=== PATIENT | female | born 1985 | race American Indian/Alaskan Native ===

== ENCOUNTER 2021-08-22 13:22 | Emergency (ER) | payer OTHER ==
[2021-08-22 13:38] VITALS: BP 149/98
[2021-08-22] MEDS ORDERED: SODIUM CHLORIDE 0.9% 1000 ML 1,000 ML IV ONE (13:43)
--- NOTE | 2021-08-22 13:44 | Event Note ---
ED Screening Note Date of service: 08/22/21 Time: 13:43 ED Screening Note: This is a 36-year-old female with past medical history of hypertension presents the emergency department approximately 15 weeks G1, P0 with chief complaint of nausea, vomiting, lower abdominal cramping and vaginal spotting that started over the past few days. 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 Further treatment and workup at subsequent clinical providers discretion. Patient/guardian urged not to elope from the ED as their condition may be serious if not clinically assessed and managed. Initial orders include: CBC, BMP, ABO Rh, OB ultrasound, urinalysis, IV fluids
--- NOTE | 2021-08-22 14:52 | Ultrasound Report ---
ULTRASOUND OBSTETRIC INDICATION / CLINICAL INFORMATION: Vaginal bleeding. Clinical Gestational Age (GA) in weeks, days: 15, 1 TECHNIQUE: Transabdominal. COMPARISON: None available. FINDINGS: Single intrauterine . Biparietal Diameter = 3.0 cm = 15, 4 weeks, days Head Circumference = 11.7 cm = 15, 5 weeks, days Abdominal Circumference = 9.7 cm = 15, 6 weeks, days Femur Length = 1.9 cm = 15, 5 weeks, days Average Ultrasound Age (AUA) = 15, 5 weeks, days Heart Rate: 160 beats per minute. Estimated Weight in grams (if calculated): Not calculated Estimated Weight Growth Percentile (if calculated): Not calculated Position: variable Cervix: closed. Length in cm (if measured): Not measured Placenta: posterior and low lying. Amniotic Fluid Volume: normal Amniotic Fluid Index (MARTIN) in cm (if calculated): Not calculated. Maternal Adnexa: No significant abnormality. Multiple uterine fibroids, measuring up to 5.6 cm. IMPRESSION: 1. Single, living intrauterine with estimated sonographic age of 15, 5 weeks, days. 2. Multiple uterine fibroids, measuring up to 5.6 cm. 3. Posterior low-lying placenta. Signer Name: Gucci Mendenhall DO Signed: 08/22/2021 2:45 PM Workstation Name: [email or web address]
[2021-08-22 15:13] LABS: Hematocrit 34.4 % (30.3-42.9); Hemoglobin 11.4 gm/dl (10.1-14.3); Mean Corpuscular HGB Conc 33 % (30-34); Mean Corpuscular Volume 83 fl (79-97); Platelet Count 306 K/mm3 (140-440); Red Blood Count 4.15 M/mm3 (3.65-5.03); Red Cell Distribution Width 16.9 % (13.2-15.2)
[2021-08-22 15:27] LABS: Basophils # (Auto) 0.3 K/mm3 (0.0-0.1); Eosinophils % (Auto) 0.5 % (0.0-4.3); Monocytes # (Auto) 0.5 K/mm3 (0.0-0.8); Monocytes % (Auto) 5.6 % (0.0-7.3)
[2021-08-22 15:30] LABS: Blood Urea Nitrogen 5 mg/dL (7-17); Calcium 9.2 mg/dL (8.4-10.2); Hemolysis Index 2
[2021-08-22 15:32] LABS: BUN/Creatinine Ratio 8
[2021-08-22 17:29] LABS: Bilirubin,Urine NEG (Negative); Blood,Urine NEG (Negative); Color,Urine Yellow (Yellow); Mucus,Urine FEW /HPF; Protein,Urine <15 mg/dL mg/dL (Negative); RBC,Urine < 1.0 /HPF (0.0-6.0); Urobilinogen,Urine < 2.0 mg/dL (<2.0)
--- NOTE | 2021-08-22 17:34 | Emergency Department Report ---
ED HPI - General Chief complaint: Vaginal Bleeding Stated complaint: 15 WEEKS SPOTTING Time Seen by Provider: 08/22/21 14:13 Source: patient Mode of arrival: Ambulatory Limitations: No Limitations - History of Present Illness Initial comments: 36 yof who is about 15 weeks gestation presents to ed for evaluation of vaginal spotting that started this am. She states that she noticed blood only when she wiped and denies having any abdominal pain or cramping. She has a pmh of HTN and is following with [facility] for this . She denies fever, dysuria, vaginal discharge. MD Complaint: vaginal bleeding -: Sudden, hour(s) Severity scale (0 -10): 0 Improves with: none Worsens with: none Associated symptoms: vaginal bleeding. denies: nausea/vomiting, vaginal discha rge, abdominal pain, dysuria, headache, vision changes, malaise, dysparuenia, rash, seizure, shortness of breath, syncope, weakness Vaginal bleeding: light :: Yes Number of weeks : 15 OB History - Current : no complications Pre-harper care: followed by OB - Related Data : 1 Para: 0 Ab: 0 Allergies Allergy/AdvReac Type Severity Reaction Status Date / Time No Known Allergies Allergy Unverified 08/22/21 13:38 ED Review of Systems ROS: Stated complaint: 15 WEEKS SPOTTING Other details as noted in HPI Comment: All other systems reviewed and negative Constitutional: denies: chills, diaphoresis, fever, malaise, weakness Eyes: denies: eye pain, eye discharge ENT: denies: ear pain, throat pain, dental pain, hearing loss, congestion Respiratory: denies: cough, orthopnea, shortness of breath, SOB with exertion, SOB at rest Cardiovascular: denies: chest pain, palpitations, dyspnea on exertion, orthopnea, edema, syncope, paroxysmal nocturnal dyspnea Endocrine: no symptoms reported Gastrointestinal: denies: abdominal pain, nausea, diarrhea, hematemesis, melena, hematochezia Genitourinary: denies: as per HPI, urgency, dysuria, frequency, hematuria, di scharge Musculoskeletal: denies: back pain Skin: denies: rash, lesions Neurological: denies: headache, weakness, numbness, paresthesias, confusion, abnormal gait, vertigo Psychiatric: denies: anxiety, depression Hematological/Lymphatic: denies: easy bleeding, easy bruising ED Physical Exam - General Limitations: No Limitations General appearance: alert, in no apparent distress - Head Head exam: Present: atraumatic, normocephalic - Eye Eye exam: Present: normal appearance. Absent: conjunctival injection - Neck Neck exam: Present: normal inspection, full ROM. Absent: tenderness, lymphadenopathy - Respiratory Respiratory exam: Present: normal lung sounds bilaterally. Absent: respiratory distress, wheezes, rales, rhonchi, stridor, chest wall tenderness, accessory muscle use - Cardiovascular Cardiovascular Exam: Present: tachycardia, normal heart sounds - GI/Abdominal GI/Abdominal exam: Present: soft, normal bowel sounds. Absent: tenderness, guarding, rebound, rigid - Extremities Exam Extremities exam: Present: normal inspection - Back Exam Back exam: Present: normal inspection. Absent: tenderness, CVA tenderness (R), CVA tenderness (L), paraspinal tenderness, vertebral tenderness - Neurological Exam Neurological exam: Present: alert, oriented X3 - Psychiatric Psychiatric exam: Present: normal affect, normal mood - Skin Skin exam: Present: warm, dry, intact, normal color ED Course Vital Signs 08/22/21 13:36 Temperature 97.9 F Pulse Rate 103 H Respiratory 16 Rate Blood Pressure 149/98 [Right] O2 Sat by Pulse 100 Oximetry ED Medical Decision Making - Lab Data Result diagrams: 08/22/21 14:50 08/22/21 14:50 - Radiology Data Radiology results: report reviewed US: Impression: 1. Single, living intrauterine with estimated sonographic age of 15, 5 weeks, days 2. Multiple uterine fibroids, measureing up to 5.6 cm. 3. Posterior low lying placenta - Medical Decision Making 36 yof who is about 15 weeks gestation presents to ed for evaluation of vaginal spotting that started this am. She states that she noticed blood only when she wiped and denies having any abdominal pain or cramping. She has a pmh of HTN and is following with [facility] for this . She denies fever, dysuria, vaginal discharge. No gross abnomalities noted on labs, and UA negative for UTI. Patient noted to be o positive, so no consideration needed for Rhogam. US noted to have single IUP at 15 weeks 5 days without an acute processes noted. She was noted to have a posterior, low-lying placenta for which she was advised to follow up with her pillar worker for monitoring and management since position of placenta can improve with increasing gestational age. Patient continues to deny abdominal pain and cramping and denies any bleeding at this time. She was advised to follow up with pillar worker as previously planned. She was advised to return to ED immediately if bleeding worsens suddenly and significantly. She verbalized understanding of and agreement with plan of care. Critical care attestation.: If time is entered above; I have spent that time in minutes in the direct care of this critically ill patient, excluding procedure time. ED Disposition Clinical Impression: Vaginal bleeding in patient at less than 20 weeks gestation Disposition: 01 HOME / SELF CARE / HOMELESS Is pt being admited?: No Does the pt Need Aspirin: No Condition: Stable Instructions: Vaginal Bleeding During , Second Trimester, [id number] Additional Instructions: Follow-up with ACCESS CONTROL OFFICER Referrals: PRIMARY CAREMD [Primary Care Provider] - 3-5 Days Time of Disposition: 17:34
[2021-08-22 18:17] LABS: Basophils % (Manual) 0 % (0.0-1.8); Eosinophils % (Manual) 0 % (0.0-4.3); RBC Morphology Normal; Total Cells Counted 100
== END 2021-08-22 19:00 | disposition home or self-care (01) ==
LOC: ED 13:22
DX: O46.92 Antepartum hemorrhage, unspecified, second trimester (principal); Z3A.15 15 weeks gestation of pregnancy
CPT/HCPCS: 36415; 76805; 80048; 81001; 84702; 85007; 85025; 86900; 86901; 96360; 99284; J7030; 76801; Q0162

== ENCOUNTER 2022-01-30 20:43 | Inpatient (IN) | payer OTHER ==
[2022-01-30] MEDS ORDERED: OXYTOCIN 10 UNIT/1 ML INJ IM PRN (20:49)
[2022-01-30] MEDS ORDERED: TERBUTALINE 1 MG/1 ML INJ SUB-Q PRN (20:49)
[2022-01-30] MEDS ORDERED: ACETAMINOPHEN 325 MG TAB PO PRN (20:49)
[2022-01-30] MEDS ORDERED: MINERAL OIL 30 ML ORAL LIQD PO PRN (20:49)
[2022-01-30] MEDS ORDERED: NALOXONE 0.4 MG/1 ML INJ IV PRN (20:49)
[2022-01-30] MEDS ORDERED: ONDANSETRON 4 MG/2 ML INJ IV PRN (20:49)
[2022-01-30] MEDS ORDERED: CARBOPROST TROMETHAMINE 250 MCG/1 ML INJ IM PRN (20:49)
[2022-01-30] MEDS ORDERED: miSOPROStol 200 MCG TAB PR PRN (20:49)
[2022-01-30] MEDS ORDERED: LOPERAMIDE 2 MG CAP PO PRN (20:49)
[2022-01-30] MEDS ORDERED: BUTORPHANOL 2 MG/1 ML INJ IV PRN (20:49)
[2022-01-30] MEDS ORDERED: DINOPROSTONE 10 MG VAG SUPP VG ONE (20:49)
[2022-01-30] MEDS ORDERED: LIDOCAINE (2%) 20 MG/1 ML VIAL 20 ML MDV INFILTRATI ONE (20:49)
[2022-01-30] MEDS ORDERED: METHYLERGONOVINE MALEATE 0.2 MG/ML VIAL IM PRN (20:49)
[2022-01-30] MEDS ORDERED: AMPICILLIN/NS 2 GM/100 ML 2 GM/100 ML BAG IV ONE (20:49)
[2022-01-30] MEDS ORDERED: OXYTOCIN DRIP 30 UNITS/500 ML BAG IV SCH ×2 (21:00)
[2022-01-30 22:08] LABS: Hematocrit 37.2 % (30.3-42.9); Hemoglobin 12.1 gm/dl (10.1-14.3); Mean Corpuscular HGB Conc 33 % (30-34); Mean Corpuscular Volume 83 fl (79-97); Platelet Count 305 K/mm3 (140-440); Red Blood Count 4.46 M/mm3 (3.65-5.03); Red Cell Distribution Width 15.8 % (13.2-15.2)
[2022-01-30 22:27] LABS: Alanine Aminotransferase 16 units/L (7-56)
[2022-01-30 23:40] LABS: Color,Urine Yellow (Yellow)
[2022-01-30 23:44] LABS: Mucus,Urine FEW /HPF
[2022-01-31] MEDS: LACTATED RINGERS 1,000 ML IV SCH ×5 (00:54→23:25)
[2022-01-31] MEDS: AMPICILLIN/NS 1 GM/50 ML 1 GM/50 ML BAG IV SCH ×2 (06:15→21:15)
[2022-01-31] MEDS: fentaNYL 100 MCG/2 ML INJ IV PRN ×2 (09:47→18:53)
[2022-01-31] MEDS: valACYclovir 500 MG TAB PO SCH ×2 (09:47→21:16)
--- NOTE | 2022-01-31 13:29 | History and Physical Report ---
History of Present Illness Date of examination: 01/31/22 Date of admission: 01/30/22 20:43 Chief complaint: Induction of labor History of present illness: 36-year-old G1, P0 at 38+2 weeks who presents for induction of labor secondary to chronic hypertension, advanced maternal age, morbid obesity. The patient initiated care 14 weeks estimated gestational age. As noted previously the patient's course is complicated by chronic hypertension. She is GBS p ositive. Past History Past Medical History: hypertension, other (Morbid obesity) Past Surgical History: no surgical history Social history: single - Obstetrical History Expected Date of Delivery: 02/12/22 Actual Gestation: 38 Week(s) 2 Day(s) : 1 Para: 0 Hx # Term Pregnancies: 0 Number of Pregnancies: 0 Spontaneous Abortions: 0 Induced : 0 Number of Living Children: 0 Medications and Allergies Allergies Allergy/AdvReac Type Severity Reaction Status Date / Time naproxen [From Naprosyn] Allergy Mild Hives Verified 01/10/22 08:37 tramadol Allergy Mild Hives Verified 01/10/22 08:37 Home Medications Medication Instructions Recorded Confirmed Last Taken Type Labetalol 200mg TAB 200 mg PO BID 01/23/22 01/31/22 01/22/22 20:00 History Active Meds: Active Medications Acetaminophen (Acetaminophen 325 Mg Tab) 650 mg PO Q4H PRN PRN Reason: Pain, Mild (1-3) Butorphanol Tartrate (Butorphanol 2 Mg/1 Ml Inj) 1 mg IV Q2H PRN PRN Reason: Pain, Moderate(4-6) LABOR PAIN Carboprost Tromethamine (Carboprost Tromethamine 250 Mcg/1 Ml Inj) 250 mcg IM ONCE PRN PRN Reason: Uterine Bleeding Ephedrine Sulfate (Ephedrine Sulfate 50 Mg/1 Ml Inj) 10 mg IV Q2M PRN PRN Reason: Hypotension Fentanyl (Fentanyl 100 Mcg/2 Ml Inj) 100 mcg IV Q2H PRN PRN Reason: Pain,Severe (7-10) LABOR PAIN Last Admin: 01/31/22 09:47 Dose: 100 mcg Oxytocin/Sodium Chloride (Pitocin/Ns 30 Unit/500ml) 30 units in 500 mls @ 2 mls/hr IV TITR JANICE; Protocol Last Admin: 01/31/22 13:11 Dose: 4 mls/hr, 4 mls/hr Lactated Ringer's (Lactated Ringers) 1,000 mls @ 125 mls/hr IV DIRECT [facility] Last Admin: 01/31/22 13:09 Dose: 125 mls/hr Oxytocin/Sodium Chloride (Pitocin/Ns 30 Unit/500ml) 30 units in 500 mls @ 40 mls/hr IV TITR [facility]; Protocol Ampicillin Sodium (Ampicillin/Ns 1 Gm/50 Ml) 1 gm in 50 mls @ 100 mls/hr IV Q4H [facility]; Protocol Last Admin: 01/31/22 06:15 Dose: 100 mls/hr Labetalol HCl (Labetalol 200 Mg Tab) 200 mg PO BID [facility] Last Admin: 01/31/22 09:46 Dose: 200 mg Loperamide HCl (Loperamide 2 Mg Cap) 2 mg PO ONCE PRN PRN Reason: give with Hemabate Methylergonovine Maleate (Methylergonovine Maleate 0.2 Mg/Ml Vial) 0.2 mg IM ONCE PRN PRN Reason: Uterine Bleeding Mineral Oil (Mineral Oil 30 Ml Oral Liqd) 30 ml PO QHS PRN PRN Reason: Constipation Misoprostol (Misoprostol 200 Mcg Tab) 800 mcg KS ONCE PRN PRN Reason: Uterine Bleeding Naloxone HCl (Naloxone 0.4 Mg/1 Ml Inj) 0.1 mg IV Q2MIN PRN PRN Reason: Res Rate </= 8 or 02 SAT < 92% Ondansetron HCl (Ondansetron 4 Mg/2 Ml Inj) 4 mg IV Q8H PRN PRN Reason: Nausea And Vomiting Oxytocin (Oxytocin 10 Unit/1 Ml Inj) 10 unit IM ONCE PRN PRN Reason: Uterine Bleeding Terbutaline Sulfate (Terbutaline 1 Mg/1 Ml Inj) 0.25 mg SUB-Q ONCE PRN PRN Reason: Hyperstimulation/Hypertonicity Valacyclovir HCl (Valacyclovir 500 Mg Tab) 1,000 mg PO QDAY [facility] Last Admin: 01/31/22 09:47 Dose: 1,000 mg Review of Systems All systems: negative - Vital Signs Vital signs: Vital Signs Pulse Ox 98 01/30/22 22:12 Temp Pulse Resp BP Pulse Ox 99.0 F 83 18 97/53 100 01/31/22 06:50 01/31/22 13:26 01/30/22 22:17 01/31/22 13:14 01/31/22 13:26 - Physical Exam Breasts: Positive: deferred Cardiovascular: Regular rate Lungs: Positive: Clear to auscultation Results Result Diagrams: 01/30/22 21:54 01/30/22 21:54 Abnormal lab results 01/30/22 Range/Units 21:54 MCH 27 L (28-32) pg RDW 15.8 H (13.2-15.2) % All other labs normal. Assessment and Plan - Patient Problems (1) Chronic hypertension affecting Current Visit: Yes Status: Acute Plan to address problem: induction for chronic hypertension (2) Morbid obesity Current Visit: Yes Status: Acute
[2022-01-31] MEDS ORDERED: ePHEDrine SULFATE 50 MG/1 ML INJ IV PRN (19:38)
[2022-01-31] MEDS ORDERED: NALOXONE 0.4 MG/1 ML INJ IV PRN (19:38)
[2022-01-31] MEDS: ePHEDrine SULFATE 50 MG/1 ML INJ IV PRN ×3 (20:42→22:30)
--- NOTE | 2022-01-31 20:54 | Anesthesia Consultation ---
Anesthesia Consult and Med Hx Date of service: 01/31/22 - Airway Anesthetic Teeth Evaluation: Poor ROM Head & Neck: Adequate Mental/Hyoid Distance: Adequate Mallampati Class: Class III Intubation Access Assessment: Possibly Difficult - Pulmonary Exam CTA: Yes - Cardiac Exam Cardiac Exam: RRR - Pre-Operative Health Status ASA Pre-Surgery Classification: ASA3 Proposed Anesthetic Plan: Epidural - Pre-Anesthesia Comment Pre-Anesthesia Comments: cervical epidural injection x 2 S/P "ladder accident" - Pulmonary Hx Smoking: No Hx Asthma: Yes (no recent attack, no medications) Hx Respiratory Symptoms: No COPD: No Hx Pneumonia: No - Cardiovascular System Hx Hypertension: Yes (CHTN, diagnosed 11/2020) - Central Nervous System Hx Seizures: No Hx Back Pain: Yes Hx Psychiatric Problems: No - Gastrointestinal Hx Gastroesophageal Reflux Disease: Yes - Endocrine Hx Renal Disease: No Hx End Stage Renal Disease: No Hx Liver Disease: No Hx Insulin Dependent Diabetes: No Hx Non-Insulin Dependent Diabetes: No Hx Hypothyroidism: No Hx Hyperthyroidism: No - Hematic Hx Anemia: No Hx Sickle Cell Disease: No - Other Systems Hx Alcohol Use: No Hx Substance Use: No Hx Obesity: Yes
[2022-01-31] MEDS: fentaNYL-BUPIV 2 MCG/ML-0.125% 200 MCG/100 ML BAG EPIDURAL SCH (21:16)
--- NOTE | 2022-01-31 21:21 | Progress Note ---
Labor Epidural - Labor Epidural Start Time: 19:56 Stop Time: 20:19 Performed by:: BEVERLEY TALAMANTES Procedure: Patient is requesting a laboring epidural for laboring pain. Patient IDed, H&P reviewed, all questions and concerns were answered, and consent was signed. Timeout was performed at bedside. Patient in sitting position. Sterile prep and drape was performed. [5] ml of 1% lidocaine skin wheal at L[3]- L [4]. 17- gauge Tuohy epidural needle was advanced to loss of resistance with saline technique 8cm. Single dural perforation via 25 guage spinal needle placed through the shaft of Epidural needle. Positive CSF via spinal needle. Negative CSF negative blood via Epidural needle. Epidural catheter advanced to [12] centimeters. [NEGATIVE] Aspiration [NEGATIVE] test dose. Negative Paresthesia. Sterile dressing applied. Patient tolerated procedure.
[2022-02-01] MEDS: AMPICILLIN/NS 1 GM/50 ML 1 GM/50 ML BAG IV SCH ×2 (03:23→05:04)
[2022-02-01] MEDS: fentaNYL-BUPIV 2 MCG/ML-0.125% 200 MCG/100 ML BAG EPIDURAL SCH (05:08)
[2022-02-01] MEDS ORDERED: LANOLIN/ZINC/DIMETHICONE (LANSINOH) 7 GM TP PRN (10:43)
[2022-02-01] MEDS ORDERED: PROMETHAZINE 25 MG RECT SUPP PR PRN (10:43)
[2022-02-01] MEDS ORDERED: PROMETHAZINE 25 MG TAB PO PRN (10:43)
[2022-02-01] MEDS ORDERED: MAGNESIUM HYDROXIDE (MOM) ORAL LIQD UDC PO PRN (10:43)
[2022-02-01] MEDS ORDERED: WITCH HAZEL/ GLYCERIN PAD TP PRN (10:43)
[2022-02-01] MEDS ORDERED: diphenhydrAMINE 25 MG CAP PO PRN (10:43)
--- NOTE | 2022-02-01 10:56 | Procedure Note ---
OB Delivery Note - Delivery Date of Delivery: 02/01/22 (1023) Surgeon: YOBANI RUCKER (CNM) Estimated blood loss: other (400mls) - Vaginal Delivery presentation: vertex Delivery position: OA Intrapartum events: none Delivery induction: oxytocin Delivery augmentation: rupture of membranes (AROM @ 1815, 01/31/22. clear) Delivery monitor: internal FHT, internal uterine Route of delivery: Delivery placenta: spontaneous (berumen, 1028) Delivery cord: nuchal cord (x 4, reduced at perineum) Episiotomy: none Delivery laceration: none, other (perineal abrasions) Anesthesia: none Delivery comments: Upon entering room, baby was delivered and crying in warmer with NICU team. Cord blood collected, sent to pathology. Placenta spontaneously delivered, disposed. Uterus deep and firm, U-2, hemostasis maintained. Perineum with superficial abrasion, pressure applied until hemostasis maintained. Mother and baby safe, stable and left in care of RN. - A at 1 minute: 8 at 5 minutes: 9 Gender: Male (Weight: 2890gms (6lbs 6ozs) 19 inches)
[2022-02-01] MEDS: IBUPROFEN 800 MG TAB PO SCH (16:55)
[2022-02-02] MEDS: oxyCODONE /ACETAMINOPHEN 5-325MG TAB PO PRN ×4 (00:03→18:16)
[2022-02-02 01:53] LABS: Hematocrit 33.3 % (30.3-42.9); Hemoglobin 10.6 gm/dl (10.1-14.3)
[2022-02-02] MEDS: IBUPROFEN 800 MG TAB PO SCH ×3 (06:04→23:00)
--- NOTE | 2022-02-02 08:35 | Discharge Summary ---
Providers - Providers Date of Admission: 01/30/22 20:43 Date of discharge: 02/03/22 Attending physician: ROQUE LEWIS Primary care physician: ROQUE LEWIS Hospitalization Reason for admission: induction of labor Delivery: Episiotomy: none Laceration: none Other procedures: none complications: none Discharge diagnosis: IUP at term delivered baby: male (Mr. Carpenter!!!) Hospital course: 36-year-old G1, P0 at 38+2 weeks who presents for induction of labor secondary to chronic hypertension, advanced maternal age, morbid obesity. The patient initiated care 14 weeks estimated gestational age. As noted previously the patient's course is complicated by chronic hypertension. She is GBS positive. Delivered viable male . Doing well on PPD#1. Desires to go home tomorrow. Condition at discharge: Good Disposition: 01 HOME / SELF CARE / HOMELESS - Discharge Diagnoses (1) Status post normal vaginal delivery Status: Acute (2) Chronic hypertension affecting Status: Acute (3) Morbid obesity Status: Acute Plan - Discharge Medications Prescriptions: Ibuprofen [Motrin 800 MG tab] 800 mg PO Q8HR #30 tablet - Provider Discharge Summary Activity: routine, no sex for 6 weeks, no heavy lifting 4 weeks, no strenuous exercise Diet: other (Iron rich diet) Instructions: routine Additional instructions: [] Smoking cessation referral if applicable(refer to patient education folder for contact #) [] Refer to [facility] Booklet Call your doctor immediately for: * Fever > 100.5 * Heavy vaginal bleeding ( >1 pad per hour) * Severe persistent headache * Shortness of breath * Reddened, hot, painful area to leg or breast - Follow up plan Follow up: ROQUE LEWIS MD [Primary Care Provider] - 6 Weeks
[2022-02-02] MEDS ORDERED: PRENATAL VIT27-FE FUMARATE-FOLIC ACID VIT TAB PO SCH (10:00)
--- NOTE | 2022-02-02 16:01 | Post Anesthesia Evaluation ---
- Post Anesthesia Evaluation Patient Participated: Yes Airway Patent: Yes Stable Respiratory Function: Yes Nausea/Vomiting: No Temp > 96.8F: Yes Pain Manageable: Yes Adequeate Hydration: Yes Anesthesia Complications: No Block Receding Appropriately: Yes Patient on Ventilator: No
[2022-02-03 09:49] VITALS: BP 121/62
== END 2022-02-03 08:45 | disposition home or self-care (01) | DRG 774 ==
LOC: LD 20:43 → OB 02-01 13:09
PROVIDERS: ADMIT Obstetrics & Gynecology; ATTEND Obstetrics & Gynecology
PROC: 10E0XZZ Delivery of Products of Conception, External Approach (ICD-10-PCS; principal; 2022-02-01)
PROC: 3E0R3BZ Introduction of Anesthetic Agent into Spinal Canal, Percutaneous Approach (ICD-10-PCS; 2022-02-01)
PROC: 00HU33Z Insertion of Infusion Device into Spinal Canal, Percutaneous Approach (ICD-10-PCS; 2022-02-01)
PROC: 3E033VJ Introduction of Other Hormone into Peripheral Vein, Percutaneous Approach (ICD-10-PCS; 2022-02-01)
PROC: 10907ZC Drainage of Amniotic Fluid, Therapeutic from Products of Conception, Via Natural or Artificial Opening (ICD-10-PCS; 2022-02-01)
DX: O10.92 Unspecified pre-existing hypertension complicating childbirth (principal); Z3A.38 38 weeks gestation of pregnancy; Z37.0 Single live birth; Z20.822 Contact with and (suspected) exposure to COVID-19; O99.214 Obesity complicating childbirth; O99.824 Streptococcus B carrier state complicating childbirth; E66.01 Morbid (severe) obesity due to excess calories; O99.62 Diseases of the digestive system complicating childbirth; K21.9 Gastro-esophageal reflux disease without esophagitis; O99.52 Diseases of the respiratory system complicating childbirth; J45.909 Unspecified asthma, uncomplicated; O69.81X0 Labor and delivery complicated by cord around neck, without compression, not applicable or unspecified; O71.89 Other specified obstetric trauma; Z88.5 Allergy status to narcotic agent; Z88.8 Allergy status to other drugs, medicaments and biological substances
CPT/HCPCS: 36415; 59200; 81001; 82565; 83615; 84450; 84460; 84550; 85014; 85018; 85027; 86592; 86850; 86900; 86901; G0378; J3490; J0290; J2590; J3010; J7120; U0003

== ENCOUNTER 2022-02-06 11:16 | Inpatient (IN) | payer OTHER ==
[2022-02-06] MEDS ORDERED: MAGNESIUM SULFATE 4 GM/100 ML BAG IV ONE (11:21)
[2022-02-06] MEDS ORDERED: hydrALAZINE 20 MG/1 ML INJ IV PRN (11:21)
--- NOTE | 2022-02-06 11:23 | History and Physical Report ---
History of Present Illness Date of examination: 02/06/22 Date of admission: 02/06/22 11:16 Chief complaint: "My head hurts and my blood pressure is high" History of present illness: Pt is a 37 year old -[place] female s/p on 02/01/22 after induction of labor for chronic hypertension at 38 wks. She met discharge criteria on PPD #1. The patient reports that over the last few days she has developed headache, and she checked her BP at home with systolic value in the 190s. She presented to the office today for BP check of 184/100. She reports compliance with the prescribed labetalol 200 mg BID throughout this process. She denies RUQ pain or scotomata. 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 History: herpes Family/Genetic History: hypertension Social history: no significant social history - Obstetrical History : 1 Para: 1 Hx # Term Pregnancies: 1 Number of Pregnancies: 0 Spontaneous Abortions: 0 Induced : 0 Number of Living Children: 1 Medications and Allergies Allergies Allergy/AdvReac Type Severity Reaction Status Date / Time naproxen [From Naprosyn] Allergy Mild Hives Verified 01/10/22 08:37 tramadol Allergy Mild Hives Verified 01/10/22 08:37 Home Medications Medication Instructions Recorded Confirmed Last Taken Type Labetalol 200mg TAB 200 mg PO BID 01/23/22 02/06/22 02/06/22 05:00 History Ibuprofen [Motrin 800 MG tab] 800 mg PO Q8HR #30 tablet 02/02/22 02/06/22 Unknown Rx SILVER sulfADIAZINE 50 GRAM 1 applic TP BID #1 tube 02/02/22 02/06/22 Unknown Rx [Thermazene 50 Gram] Active Meds: Active Medications Hydralazine HCl (Hydralazine 20 Mg/1 Ml Inj) 5 mg IV Q30MIN PRN PRN Reason: Hypertension Lactated Ringer's (Lactated Ringers) 1,000 mls @ 125 mls/hr IV DIRECT J[facility] Magnesium Sulfate (Magnesium Sulfate 40gm/1000ml) 40 gm in 1,000 mls @ 50 mls/hr IV DIRECT J[facility] Magnesium Sulfate (Magnesium Sulfate 4gm/100ml) 4 gm in 100 mls @ 300 mls/hr IV ONCE ONE Stop: 02/06/22 11:40 Review of Systems All systems: negative - Physical Exam Breasts: Positive: deferred Cardiovascular: Regular rate Lungs: Positive: Clear to auscultation (obese) Abdomen: Positive: soft. Negative: tenderness Extremities: Positive: edema (1+) Results All other labs normal. Assessment and Plan A: s/p on 02/01/22 Chronic HTN with superimposed preeclampsia Morbid Obesity P: Admit to labor and delivery for IV Magnesium sulfate for seizure prophylaxis PIH panel Hydralazine PRN Discontinue labetalol, begin Procardia XL 30 mg and increase as indicated
[2022-02-06] MEDS: LACTATED RINGERS 1,000 ML IV SCH (13:05)
[2022-02-06] MEDS: NIFEdipine XL 30 MG TAB PO SCH (13:23)
[2022-02-06] MEDS: MAGNESIUM SULFATE 40GM/1000ML 40 GM/1,000 ML BAG IV SCH (13:35)
[2022-02-06 20:26] LABS: Hemoglobin 11.4 gm/dl (10.1-14.3); Mean Corpuscular HGB Conc 33 % (30-34); Mean Corpuscular Volume 84 fl (79-97); Platelet Count 328 K/mm3 (140-440); Red Blood Count 4.15 M/mm3 (3.65-5.03); Red Cell Distribution Width 16.1 % (13.2-15.2)
[2022-02-06 21:09] LABS: Alanine Aminotransferase 25 units/L (7-56); Uric Acid 5.9 mg/dL (3.5-7.6)
[2022-02-06] MEDS ORDERED: ZOLPIDEM 5 MG TAB PO PRN (22:02)
[2022-02-06] MEDS: ACETAMINOPHEN 325 MG TAB PO PRN (22:54)
[2022-02-07] MEDS: LACTATED RINGERS 1,000 ML IV SCH (01:03)
[2022-02-07] MEDS: ACETAMINOPHEN 325 MG TAB PO PRN ×2 (04:03→11:49)
--- NOTE | 2022-02-07 08:30 | Progress Note ---
Assessment and Plan A: s/p on 02/01/22 Chronic HTN with superimposed preeclampsia on magnesium sulfate for seizure prophylaxis Morbid Obesity P: Continue 24 hours of magnesium sulfate If BPs acceptable, consider discharge this evening. Subjective - Subjective Date of service: 02/07/22 Principal diagnosis: Chronic HTN with superimposed preeclampsia Interval history: Pt's headache is improving. No new complaints. Patient reports: no voiding normally (fuentes in place ) Objective - Vital Signs Latest vital signs: Vital Signs Temp Pulse Resp BP Pulse Ox Pulse Ox 02/07/22 08:00 92 H 126/79 02/07/22 07:00 96 H 142/91 02/07/22 06:00 86 136/88 02/07/22 05:00 88 126/69 02/07/22 04:00 88 128/80 02/07/22 03:55 97.2 F L 02/07/22 03:00 84 137/84 02/07/22 02:00 87 120/74 02/07/22 01:00 91 H 124/74 02/07/22 00:58 98.0 F 02/07/22 00:00 86 117/72 02/06/22 23:00 82 121/77 02/06/22 22:14 71 94 02/06/22 22:10 100 02/06/22 22:03 98 H 99 02/06/22 22:00 99 H 126/85 02/06/22 21:37 85 02/06/22 21:33 90 95 02/06/22 21:28 93 H 97 02/06/22 21:23 94 H 96 02/06/22 21:18 94 H 97 02/06/22 21:13 112 H 98 02/06/22 21:10 76 91 02/06/22 21:08 93 H 96 02/06/22 21:02 95 H 89 02/06/22 21:00 93 H 111/66 02/06/22 20:57 96 H 97 02/06/22 20:52 99 H 96 02/06/22 20:45 86 02/06/22 20:41 98.1 F 96 02/06/22 20:38 93 H 98 02/06/22 20:25 80 96 02/06/22 20:16 82 96 02/06/22 20:11 85 92 02/06/22 20:06 84 97 02/06/22 20:05 79 L 02/06/22 20:00 89 132/81 02/06/22 19:59 92 H 96 02/06/22 19:54 92 H 97 02/06/22 19:49 77 98 02/06/22 19:44 82 99 02/06/22 19:39 88 98 02/06/22 19:34 87 99 02/06/22 19:29 96 H 141/91 99 02/06/22 19:24 85 98 02/06/22 19:19 87 98 02/06/22 19:14 78 99 02/06/22 19:09 88 99 02/06/22 19:04 80 100 02/06/22 19:00 84 173/96 02/06/22 18:59 84 99 02/06/22 18:54 73 98 02/06/22 18:49 87 99 02/06/22 18:44 90 98 02/06/22 18:39 78 99 02/06/22 18:34 84 99 02/06/22 18:29 84 99 02/06/22 18:24 85 99 02/06/22 18:19 79 99 02/06/22 18:14 86 98 02/06/22 18:12 16 98 02/06/22 18:09 84 99 02/06/22 18:04 81 99 02/06/22 18:00 74 142/80 02/06/22 17:59 80 99 02/06/22 17:54 80 99 02/06/22 17:49 83 99 02/06/22 17:44 72 100 02/06/22 17:39 72 100 02/06/22 17:34 76 99 02/06/22 17:29 83 99 02/06/22 17:24 83 100 02/06/22 17:19 75 100 02/06/22 17:14 74 100 02/06/22 17:12 16 100 02/06/22 17:09 86 99 02/06/22 17:05 99.0 F 02/06/22 17:04 84 100 02/06/22 16:59 81 100 02/06/22 16:54 97 H 98 02/06/22 16:51 77 86 02/06/22 16:49 78 99 02/06/22 16:48 71 141/82 02/06/22 16:44 72 99 02/06/22 16:39 63 100 02/06/22 16:34 67 99 02/06/22 16:33 68 139/79 02/06/22 16:29 70 99 02/06/22 16:24 64 99 02/06/22 16:19 90 98 02/06/22 16:18 71 136/72 02/06/22 16:14 71 98 02/06/22 16:09 67 96 02/06/22 16:04 66 96 02/06/22 16:03 69 136/69 02/06/22 16:00 16 96 02/06/22 15:59 65 96 02/06/22 15:54 69 97 02/06/22 15:49 62 98 02/06/22 15:48 70 147/84 02/06/22 15:44 69 99 02/06/22 15:39 67 98 02/06/22 15:34 69 98 02/06/22 15:33 71 145/73 02/06/22 15:29 69 99 02/06/22 15:24 71 98 02/06/22 15:19 70 100 02/06/22 15:18 74 147/81 02/06/22 15:14 74 99 02/06/22 15:09 70 99 02/06/22 15:04 93 H 99 02/06/22 15:03 73 154/81 02/06/22 15:00 16 99 02/06/22 14:59 74 99 02/06/22 14:54 67 99 02/06/22 14:49 66 99 02/06/22 14:48 70 155/82 02/06/22 14:44 72 99 02/06/22 14:39 68 98 02/06/22 14:34 96 H 98 02/06/22 14:33 68 154/87 02/06/22 14:29 63 88 02/06/22 14:24 61 99 02/06/22 14:19 66 99 02/06/22 14:18 71 131/65 02/06/22 14:14 81 100 02/06/22 14:09 62 99 02/06/22 14:04 75 99 02/06/22 14:03 62 162/84 02/06/22 14:00 16 99 02/06/22 13:59 62 99 02/06/22 13:54 61 99 02/06/22 13:49 72 100 02/06/22 13:48 64 146/72 02/06/22 13:44 69 99 02/06/22 13:39 69 99 02/06/22 13:34 73 84 02/06/22 13:30 65 135/70 02/06/22 13:29 71 100 02/06/22 13:25 75 136/72 02/06/22 13:24 75 100 02/06/22 13:20 68 140/70 02/06/22 13:19 67 100 02/06/22 13:15 60 146/70 02/06/22 13:14 62 99 02/06/22 13:10 64 159/84 02/06/22 13:09 63 100 02/06/22 13:08 16 100 02/06/22 13:05 67 162/86 02/06/22 13:04 63 100 02/06/22 12:59 70 100 02/06/22 12:54 75 99 02/06/22 12:49 69 100 02/06/22 12:44 77 100 02/06/22 12:39 81 100 02/06/22 12:34 67 99 02/06/22 12:29 79 99 02/06/22 12:24 81 99 02/06/22 12:19 98.9 F 65 14 99 99 02/06/22 12:14 80 98 02/06/22 12:13 84 172/89 Intake and Output 02/06/22 02/07/22 02/07/22 22:59 06:59 14:59 Intake Total 1125 250 Output Total 6800 3900 Balance -5675 -3650 Intake: IV 1000 Lactated Ringers 1,000 ml 1000 @ 125 mls/hr IV DIRECT JANIEC Rx#:[id number] Other 125 250 Output: Urine 6800 3900 Indwelling Catheter 5000 3900 Uretheral (Fuentes) 1800 Other: Intake, Other Source Saline Solution Saline Solution Total, Intake Amount 125 125 Total, Output Amount 1800 400 # Voids Indwelling Catheter 1,600 - Exam Breasts: Present: deferred Abdomen: Present: soft (obese ) Extremities: Present: edema (1+) - Labs Labs: Abnormal lab results 02/06/22 02/06/22 Range/Units 20:00 20:00 MCH 27 L (28-32) pg RDW 16.1 H (13.2-15.2) % Lactate Dehydrogenase 266 H (91-180) units/L
[2022-02-07] MEDS: NIFEdipine XL 30 MG TAB PO SCH (10:02)
[2022-02-07] MEDS: MAGNESIUM SULFATE 40GM/1000ML 40 GM/1,000 ML BAG IV SCH (10:03)
[2022-02-07] MEDS ORDERED: NIFEdipine XL 30 MG TAB PO SCH (15:00)
[2022-02-07 16:37] VITALS: BP 142/88
--- NOTE | 2022-02-07 17:19 | Discharge Summary ---
Providers - Providers Date of Admission: 02/06/22 11:55 Date of discharge: 02/07/22 Attending physician: ROQUE LEWIS Primary care physician: ROQUE LEWIS Hospitalization Reason for admission: other (Chronic hyperrtension with superimposed preeclampsia) Procedure details: IV Magnesium sulfate for seizure prophylaxis Hospital course: Pt was admitted for chronic hypertension with preeclampsia. She received IV magnesium sulfate for 24 hours and was started on Procardia XL 30 mg BID. She met discharge criteria on hospital day 1. She will follow up in 1 wk for a BP check. Condition at discharge: Stable Disposition: 01 HOME / SELF CARE / HOMELESS - Discharge Diagnoses (1) Chronic hypertension with superimposed pre-eclampsia Status: Acute (2) Chronic hypertension affecting Status: Acute (3) Morbid obesity Status: Acute (4) Status post normal vaginal delivery Status: Acute Plan - Discharge Medications Prescriptions: NIFEdipine XL [Procardia Xl] 30 mg PO QDAY #30 tablet NIFEdipine XL [Procardia Xl] 30 mg PO Q12HR #60 tab - Provider Discharge Summary Activity: routine, no sex for 6 weeks, no heavy lifting 4 weeks, no strenuous exercise Diet: routine Instructions: routine Additional instructions: [] Smoking cessation referral if applicable(refer to patient education folder for contact #) [] Refer to [facility] Booklet Call your doctor immediately for: * Fever > 100.5 * Heavy vaginal bleeding ( >1 pad per hour) * Severe persistent headache * Shortness of breath * Reddened, hot, painful area to leg or breast * Drainage or odor from incision. * Keep incision clean and dry at all times and follow doctor's instructions regarding bathing/showering - Follow up plan Follow up: ROQUE LEWIS MD [Primary Care Provider] - 7 Days
== END 2022-02-07 17:53 | disposition home or self-care (01) | DRG 776 ==
LOC: 3A 11:16 → UNDOADMOB 11:16 → OBSVTOIN 11:55 → LD 11:55 → OB 02-07 14:07
PROVIDERS: ADMIT Obstetrics & Gynecology; ATTEND Obstetrics & Gynecology
DX: O11.5 Pre-existing hypertension with pre-eclampsia, complicating the puerperium (principal); Z20.822 Contact with and (suspected) exposure to COVID-19; O99.215 Obesity complicating the puerperium; E66.01 Morbid (severe) obesity due to excess calories; Z88.5 Allergy status to narcotic agent; Z88.8 Allergy status to other drugs, medicaments and biological substances
CPT/HCPCS: 36415; 82565; 83615; 84450; 84460; 84550; 85027; G0378; J3475; J7120; U0003

== ENCOUNTER 2022-02-24 02:56 | Emergency (ER) | payer OTHER ==
[2022-02-24 03:36] LABS: Hematocrit 38.3 % (30.3-42.9); Hemoglobin 12.4 gm/dl (10.1-14.3); Mean Corpuscular HGB Conc 32 % (30-34); Mean Corpuscular Volume 84 fl (79-97); Platelet Count 387 K/mm3 (140-440); Red Blood Count 4.59 M/mm3 (3.65-5.03)
[2022-02-24 03:51] LABS: Alanine Aminotransferase 10 units/L (7-56); Albumin 4.2 g/dL (3.9-5); BUN/Creatinine Ratio 14; Blood Urea Nitrogen 11 mg/dL (7-17); Calcium 9.7 mg/dL (8.4-10.2); Hemolysis Index 0
[2022-02-24 06:32] LABS: Anisocytosis 1+; Band Neutrophils # (Manual) 0.1 K/mm3; Basophils % (Manual) 0 % (0.0-1.8); Platelet Estimate Consistent w Auto; Total Cells Counted 100
--- NOTE | 2022-02-24 11:13 | Cat Scan Report ---
CTA CHEST WITH CONTRAST INDICATION / CLINICAL INFORMATION: Shortness of breath. TECHNIQUE: Axial CT images were obtained through the chest after injection of IV contrast. 3 plane IA P and/or 3D reconstructions were produced. All CT scans at this location are performed using CT dose reduction for ALARA by means of automated exposure control. COMPARISON: None available. FINDINGS: PULMONARY EMBOLUS: None. THORACIC AORTA: No significant abnormality. HEART: No significant abnormality. CORONARY ARTERY CALCIFICATION: Absent -- None. MEDIASTINUM / JAY: No significant abnormality. PLEURA: No pleural effusion. No pneumothorax. LUNGS: No acute air space or interstitial disease. ADDITIONAL FINDINGS: None. UPPER ABDOMEN: No acute findings. SKELETAL STRUCTURES: No significant osseous abnormality. IMPRESSION: 1. No CT evidence for pulmonary embolism. 2. No acute findings. Signer Name: Stephon Hdez MD Signed: 02/24/2022 11:09 AM Workstation Name: [id number]
--- NOTE | 2022-02-24 11:37 | Emergency Department Report ---
ED Shortness of Breath HPI - General Chief Complaint: Dyspnea/Respdistress Stated Complaint: STELLA/BACK PAIN/POST DELIVERY 3WKS AGO Time Seen by Provider: 02/24/22 11:16 Source: patient Mode of arrival: Ambulatory Limitations: No Limitations - History of Present Illness Initial Comments: 37 yo F with recent 3 weeks ago who now present with lower back pain that started last night only to wake up this morning with dyspnea. Pt has epidural for her and was diagnosed with post delivery preeclampsia. She however denies any fever or chills. No bowel loss or urinary retention. No other modifying or associated factors. MD Complaint: shortness of breath, chest pain - Related Data Home Medications Medication Instructions Recorded Confirmed Last Taken Labetalol 200mg TAB 200 mg PO BID 01/23/22 02/06/22 02/06/22 05:00 Previous Rx's Medication Instructions Recorded Last Taken Type Ibuprofen [Motrin 800 MG tab] 800 mg PO Q8HR #30 tablet 02/02/22 Unknown Rx SILVER sulfADIAZINE 50 GRAM 1 applic TP BID #1 tube 02/02/22 Unknown Rx [Thermazene 50 Gram] NIFEdipine XL [Procardia Xl] 30 mg PO Q12HR #60 tab 02/07/22 Unknown Rx Docusate Sodium [Colace] 100 mg PO BID PRN 5 Days #10 02/24/22 Unknown Rx capsule NS HYDROcodone/APAP 5-325 [[place] 1 each PO Q6HR PRN 4 Days #12 02/24/22 Unknown Rx 5/325] tablet NS Allergies Allergy/AdvReac Type Severity Reaction Status Date / Time naproxen [From Naprosyn] Allergy Mild Hives Verified 01/10/22 08:37 tramadol Allergy Mild Hives Verified 01/10/22 08:37 ED Review of Systems ROS: Stated complaint: STELLA/BACK PAIN/POST DELIVERY 3WKS AGO Other details as noted in HPI Comment: All other systems reviewed and negative Respiratory: shortness of breath, SOB at rest Musculoskeletal: back pain (lower back pain ) ED Past Medical Hx - Past Medical History Previous Medical History?: Yes Hx Hypertension: Yes ([place], diagnosed 11/2020) Hx Congestive Heart Failure: No Hx Diabetes: No Hx Deep Vein Thrombosis: No Hx Liver Disease: No Hx Renal Disease: No Hx Sickle Cell Disease: No Hx Seizures: No Hx Asthma: Yes (no recent attack, no medications) Hx COPD: No Hx HIV: No Additional medical history: VAGINAL DELIVERY 01/2022 - Surgical History Past Surgical History?: No - Social History Smoking Status: Unknown if ever smoked - Medications Home Medications: Home Medications Medication Instructions Recorded Confirmed Last Taken Type Labetalol 200mg TAB 200 mg PO BID 01/23/22 02/06/22 02/06/22 05:00 History Ibuprofen [Motrin 800 MG tab] 800 mg PO Q8HR #30 tablet 02/02/22 02/06/22 Unknown Rx SILVER sulfADIAZINE 50 GRAM 1 applic TP BID #1 tube 02/02/22 02/06/22 Unknown Rx [Thermazene 50 Gram] NIFEdipine XL [Procardia Xl] 30 mg PO Q12HR #60 tab 02/07/22 Unknown Rx Docusate Sodium [Colace] 100 mg PO BID PRN 5 Days #10 02/24/22 Unknown Rx capsule NS HYDROcodone/APAP 5-325 [[place] 1 each PO Q6HR PRN 4 Days #12 02/24/22 Unknown Rx 5/325] tablet NS ED Physical Exam - General Limitations: No Limitations General appearance: alert, in no apparent distress - Head Head exam: Present: normal inspection - ENT ENT exam: Present: normal exam, normal orophraynx, mucous membranes dry - Neck Neck exam: Present: normal inspection. Absent: tenderness - Respiratory Respiratory exam: Present: normal lung sounds bilaterally. Absent: respiratory distress, accessory muscle use - Cardiovascular Cardiovascular Exam: Present: regular rate, normal rhythm, normal heart sounds - GI/Abdominal GI/Abdominal exam: Present: soft, normal bowel sounds. Absent: distended, tenderness - Extremities Exam Extremities exam: Present: normal inspection, normal capillary refill, pedal edema (+1 bilateral pitting). Absent: full ROM, tenderness - Back Exam Back exam: Present: tenderness - Neurological Exam Neurological exam: Present: alert, oriented X3 - Psychiatric Psychiatric exam: Present: normal affect, normal mood - Skin Skin exam: Present: warm, normal color ED Course Vital Signs 02/24/22 02:59 Temperature 99.3 F Pulse Rate 119 H Respiratory 18 Rate Blood Pressure 154/85 O2 Sat by Pulse 99 Oximetry ED Medical Decision Making - Lab Data Result diagrams: 02/24/22 03:03 02/24/22 03:03 - Medical Decision Making here with sob with lower back pain -- considering recent with epidural -- her lower back pain is likely as result of post epidural --spinal abscess is unlikely with no fever or focal tenderness -- but could not rule out PE consid ering recent --will go ahead and order CBC, CMP and d-dimer-- D-dimer noted to be elevated so CTA chest ordered-- resulted to be within normal limit-- which ruled out PE-- pt reassured and d/c home on pain medication -- Critical care attestation.: If time is entered above; I have spent that time in minutes in the direct care of this critically ill patient, excluding procedure time. ED Disposition Clinical Impression: History of epidural anesthesia Lower back pain Qualifiers: Chronicity: acute Back pain laterality: unspecified Sciatica presence: unspecified whether sciatica present Qualified Code(s): M54.50 - Low back pain, unspecified Dyspnea Qualifiers: Dyspnea type: unspecified Qualified Code(s): R06.00 - Dyspnea, unspecified Disposition: HOME / SELF CARE / HOMELESS Is pt being admited?: No Does the pt Need Aspirin: No Condition: Stable Instructions: Shortness of Breath, Adult, [id number], Back Exercises, [id number] Additional Instructions: Increase your daily fluid to help your hydration Take your pain medication as prescribed and please do not forget to express and dump before breast-feeding your baby has a strong pain medicine who be tra nsferred to your baby to the milk : Follow-up with your primary doctor in the next 3 to 5 days for progress Do not hesitate to call or return to emergency if your symptoms worsen Prescriptions: Docusate Sodium [Colace] 100 mg PO BID PRN 5 Days #10 capsule NS PRN Reason: Constipation HYDROcodone/APAP 5-325 [[place] 5/325] 1 each PO Q6HR PRN 4 Days #12 tablet NS PRN Reason: Pain Time of Disposition: 12:09
[2022-02-24 12:34] VITALS: BP 118/71
== END 2022-02-24 12:34 | disposition home or self-care (01) ==
LOC: ED 02:56
DX: M54.50 Low back pain, unspecified (principal); R06.00 Dyspnea, unspecified; Z91.09 Other allergy status, other than to drugs and biological substances; I10 Essential (primary) hypertension; J45.909 Unspecified asthma, uncomplicated; Z79.899 Other long term (current) drug therapy
CPT/HCPCS: 36415; 71275; 80053; 85007; 85025; 85379; 99284; Q9967